=== PATIENT | male | born 1965 | race Caucasian/White ===

== ENCOUNTER 2019-05-23 10:03 | Emergency (ER) | payer OTHER ==
[~2019-05-23] VITALS: Ht 167.6 cm; Wt 86.2 kg
[2019-05-23 10:07] VITALS: BP 138/90
--- NOTE | 2019-05-23 11:40 | NUR ---
pt was medicated as ordered.
[2019-05-23] MEDS ORDERED: ACETAMINOPHEN 325 MG TABLET ONE (11:41)
[2019-05-23] MEDS ORDERED: IBUPROFEN 400 MG TABLET ONE (11:42)
[2019-05-23] MEDS ORDERED: ONDANSETRON 4 MG TAB.RAPDIS ONE (11:42)
[2019-05-23] MEDS ORDERED: ACETAMINOPHEN 325 MG TABLET PO ONE (12:00)
[2019-05-23] MEDS ORDERED: ONDANSETRON HCL 4 MG/5 ML SOLUTION PO ONE (12:00)
[2019-05-23] MEDS ORDERED: IBUPROFEN 400 MG TABLET PO ONE (12:00)
== END 2019-05-23 11:48 | disposition home or self-care (01) ==
LOC: ER 10:03
DX: J11.1 Influenza due to unidentified influenza virus with other respiratory manifestations (principal); R50.9 Fever, unspecified; M79.18 Myalgia, other site; R11.2 Nausea with vomiting, unspecified; R19.7 Diarrhea, unspecified; I10 Essential (primary) hypertension; M54.9 Dorsalgia, unspecified; G89.29 Other chronic pain
CPT/HCPCS: Q0162

== ENCOUNTER 2021-05-01 12:52 | Emergency (ER) | payer OTHER ==
[~2021-05-01] VITALS: Ht 167.6 cm; Wt 81.6 kg
--- NOTE | 2021-05-01 13:45 | NUR ---
PT CAME TO ER C/O CHEST PAIN, SOB, AND COUGH X 3 DAYS. DENIES N/V. HX OF CHOLESTEROL AND HTN. AAOX4, AMBULATORY, NO MURMURS HEARD.
--- NOTE | 2021-05-01 15:20 | NUR ---
BLOOD SAMPLE OBTAINED AND SENT TO LAB
[2021-05-01 16:28] LABS: BASOPHILS # (AUTO) 0.1 K/uL (0.0-0.2); BASOPHILS % (AUTO) 0.9 % (0.0-2.0); EOSINOPHILS % (AUTO) 0.9 % (0.0-6.0); HEMATOCRIT 45 % (39-51); HEMOGLOBIN 14.8 g/dL (13.5-17.5); LYMPHOCYTES # (AUTO) 1.6 K/uL (0.8-4.8); LYMPHOCYTES % (AUTO) 16.7 % (20.0-44.0); MEAN CORPUSCULAR HGB CONC 33 g/dl (31.0-36.0); MEAN CORPUSCULAR VOLUME 90 fL (80-96); MONOCYTES % (AUTO) 10.3 % (2.0-12.0); NEUTROPHILS # (AUTO) 6.9 K/uL (1.8-8.9); NEUTROPHILS % (AUTO) 71.2 % (43.0-81.0); PLATELET COUNT (AUTO) 354 K/uL (150-450); RED BLOOD CELL COUNT(AUTO) 4.98 MIL/uL (4.5-6.0); WHITE BLOOD COUNT (AUTO) 9.7 K/uL (4.3-11.0)
[2021-05-01] MEDS ORDERED: ASPIRIN 325 MG TABLET PO ONE (16:30)
[2021-05-01 17:04] LABS: CALCIUM, SERUM 9.3 mg/dL (8.5-10.1); CARBON DIOXIDE 27 mmol/L (21-32); CHLORIDE 102 mmol/L (98-107); CREATININE 0.9 mg/dL (0.6-1.3); GLUCOSE 83 mg/dL (74-106); POTASSIUM 4.1 mmol/L (3.5-5.1); SODIUM SERUM 139 mmol/L (136-145); UREA NITROGEN, BLOOD 14 mg/dL (7-18)
--- NOTE | 2021-05-01 17:43 | NUR ---
COVID SAMPLE OBTAINED AND SENT TO LAB
[2021-05-01] MEDS ORDERED: CT SWABBABLE VALVE TRANS SET 1 EA INFUS.SET MC ONE (18:15)
[2021-05-01] MEDS ORDERED: IOHEXOL-350 100 ML VIAL IV ONE (18:15)
[2021-05-01] MEDS ORDERED: IV NS 0.9% 250 ML IV ONE (18:15)
--- NOTE | 2021-05-01 18:20 | NUR ---
PT LAYING IN BED COMNFORTABLY, VS STABLE, NEEDS MET
[2021-05-01] MEDS ORDERED: ASPIRIN 325 MG TABLET ONE (18:36)
[2021-05-01] MEDS ORDERED: PRED20TA PO (20:49)
[2021-05-01] MEDS ORDERED: ACET325T53 MC (20:49)
--- NOTE | 2021-05-01 21:33 | NUR ---
IV removed. Catheter intact and site benign. Pressure and 4x4 applied to site. No bleeding noted.Patient discharged to home in stable condition. Written and verbal after care instructions given. Patient verbalizes understanding of instruction.
[2021-05-02 01:49] VITALS: BP 149/90
== END 2021-05-01 21:33 | disposition home or self-care (01) ==
LOC: ER 13:47
DX: J20.9 Acute bronchitis, unspecified (principal); Z20.822 Contact with and (suspected) exposure to COVID-19; R07.9 Chest pain, unspecified; R79.1 Abnormal coagulation profile; Z82.49 Family history of ischemic heart disease and other diseases of the circulatory system; I10 Essential (primary) hypertension; G89.29 Other chronic pain; M54.9 Dorsalgia, unspecified
CPT/HCPCS: 36415; 71046; 71275; 80048; 83605; 84484 ×2; 85025; 85378; 87040 ×2; 87426; 93005; 99285; J7050; Q9967; C9803; U0003

== ENCOUNTER 2021-08-28 13:22 | Emergency (ER) | payer OTHER ==
[~2021-08-28] VITALS: Ht 162.6 cm; Wt 90.7 kg
[~2021-08-28 13:22] MED LIST: ACET325T53 MC; PRED20TA PO
--- NOTE | 2021-08-28 13:22 | NUR ---
PT BIB SELF C/O DIZZINESS, CHEST AND UPPER BACK PAIN FOR MORE THAN A WEEK. PT IS AAOX4, NOT IN RESPIRATORY DISTRESS, HOOKED TO V/S MONITOR, KEPT RESTED AND COMFORTABLE. WILL CONTINUE TO MONITOR.
--- NOTE | 2021-08-28 13:28 | NUR ---
PT SEEN AND EXAMINED BY .
--- NOTE | 2021-08-28 13:55 | NUR ---
IV LINE ESTABLISHED BLOOD DRAWN AND SENT TO LAB.
[2021-08-28] MEDS ORDERED: IV NS 0.9% 500 ML BAG IV ONE (14:00)
--- NOTE | 2021-08-28 14:03 | NUR ---
COVID SPECIMEN OBTAINED AND SENT TO LAB.
[2021-08-28 14:16] LABS: BASOPHILS % (AUTO) 0.4 % (0.0-2.0); EOSINOPHILS % (AUTO) 0.9 % (0.0-6.0); HEMATOCRIT 42 % (39-51); HEMOGLOBIN 14.2 g/dL (13.5-17.5); LYMPHOCYTES # (AUTO) 2.4 K/uL (0.8-4.8); LYMPHOCYTES % (AUTO) 26.5 % (20.0-44.0); MEAN CORPUSCULAR HGB CONC 33 g/dl (31.0-36.0); MEAN CORPUSCULAR VOLUME 89 fL (80-96); MONOCYTES # (AUTO) 0.7 K/uL (0.1-1.30); MONOCYTES % (AUTO) 7.8 % (2.0-12.0); NEUTROPHILS # (AUTO) 5.8 K/uL (1.8-8.9); NEUTROPHILS % (AUTO) 64.4 % (43.0-81.0); PLATELET COUNT (AUTO) 347 K/uL (150-450); RED BLOOD CELL COUNT(AUTO) 4.75 MIL/uL (4.5-6.0)
--- NOTE | 2021-08-28 14:20 | NUR ---
URINAL GIVEN BUT UNABLE TO PROVIDE URINE SPECIMEN THIS TIME.
[2021-08-28] MEDS ORDERED: KETOROLAC TROMETHAMINE INJ 30 MG/ML VIAL ONE (14:22)
--- NOTE | 2021-08-28 14:27 | NUR ---
PT IS WHEELED TO CT SCAN VIA [facility].
[2021-08-28] MEDS ORDERED: KETOROLAC TROMETHAMINE INJ 30 MG/ML VIAL IV ONE (14:30)
[2021-08-28 14:42] LABS: CALCIUM, SERUM 8.9 mg/dL (8.5-10.1); CARBON DIOXIDE 24 mmol/L (21-32); CHLORIDE 105 mmol/L (98-107); CREATININE 0.8 mg/dL (0.6-1.3); GLUCOSE 116 mg/dL (74-106); POTASSIUM 4.4 mmol/L (3.5-5.1); SODIUM SERUM 141 mmol/L (136-145); UREA NITROGEN, BLOOD 25 mg/dL (7-18)
[2021-08-28 14:55] LABS: ALANINE AMINOTRANSFERASE 56 U/L (12-78); ALBUMIN 3.9 g/dL (3.4-5.0); ALKALINE PHOSPHATASE 123 U/L (46-116); ASPARTATE AMINOTRANSFERASE 35 U/L (15-37); BILIRUBIN,DIRECT 0.1 mg/dL (0.0-0.2); BILIRUBIN,TOTAL 0.3 mg/dL (0.2-1.0); TOTAL PROTEIN, SERUM 7.6 g/dL (6.4-8.2)
--- NOTE | 2021-08-28 15:19 | NUR ---
URINE SPECIMEN OBTAINED AND SENT TO LAB.
[2021-08-28 15:35] LABS: BILIRUBIN,URINE NEGATIVE (NEGATIVE); COLOR,URINE YELLOW (YELLOW); LEUKOCYTE ESTERASE ,URINE NEGATIVE (NEGATIVE); NITRITE, URINE NEGATIVE (NEGATIVE); PH,URINE 5.5 (5.0-8.0); PROTEIN,URINE NEGATIVE (NEGATIVE); UGLUCOSE NEGATIVE (NEGATIVE); UROBILINOGEN,URINE 0.2 EU/dL (0.2)
[2021-08-28 16:10] VITALS: BP 135/74
--- NOTE | 2021-08-28 16:10 | NUR ---
IV removed. Catheter intact and site benign. Pressure and 4x4 applied to site. No bleeding noted. Patient discharged to home in stable condition. Written and verbal after care instructions given. Patient verbalizes understanding of instruction.
== END 2021-08-28 16:11 | disposition home or self-care (01) ==
LOC: ER 13:38
DX: I10 Essential (primary) hypertension (principal); J02.9 Acute pharyngitis, unspecified; Z20.822 Contact with and (suspected) exposure to COVID-19; E86.0 Dehydration; Z82.49 Family history of ischemic heart disease and other diseases of the circulatory system; G89.29 Other chronic pain; M54.9 Dorsalgia, unspecified; E78.5 Hyperlipidemia, unspecified
CPT/HCPCS: 36415; 71045; 74176; 80048; 80076; 81003; 83690; 84484; 85025; 87426; 93005; 96374; 99285; J1885; J7040; C9803